=== PATIENT | female | born 1985 ===

== ENCOUNTER → 2022-08-20 13:04 | Outpatient (CLI) | payer OTHER, MEDICAID, SELFPAY ==
[2022-08-20 19:57] LABS: Hematocrit 38.2 % (36-46); Hemoglobin 12.8 g/dL (12.0-16.0); Mean Corpuscular HGB Conc 33.4 % (30-36); Mean Corpuscular Hemoglobin 32.3 PG (26-34); Mean Corpuscular Volume 96.8 fL (80-100); Platelet Count 147 X10^3/uL (150-400); Red Blood Cell Count 3.95 X10^6/uL (4.0-5.2); Red Cell Distribution Width 15.4 % (11.6-14.8)
[2022-08-20 20:04] LABS: Alanine Aminotransferase 18 IU/L (<35); Albumin Globulin Ratio 1.1 (1.0-2.8); Alkaline Phosphatase 60 U/L (38-126); Aspartate Aminotransferase 26 IU/L (14-36); Bilirubin Total 0.3 mg/dL (0.2-1.3); Bilirubin Unconjugated 0.2 mg/dL (0.0-1.1); Globulin 3.8 g/dL (1.7-4.1); HEMOLYSIS < 15 (0-50); Total Protein 7.8 g/dL (6.3-8.2)
[2022-08-20 20:58] LABS: Anisocytosis 1+; Neutrophils Absolute Manual 4600 /uL (3000-5900); Total Cells Counted 100
[2022-08-20 21:00] LABS: Polychromasia 1+
== END ==
PROVIDERS: PCP Family Medicine; Visit Provider Family Medicine
DX: G40.909 Epilepsy, unspecified, not intractable, without status epilepticus (principal)
CPT/HCPCS: 80076; 85025

== ENCOUNTER → 2023-01-12 14:30 | Outpatient (CLI) | payer OTHER, MEDICAID, SELFPAY ==
[2023-01-12 19:55] LABS: Hematocrit 40.1 % (36-46); Hemoglobin 13.2 g/dL (12.0-16.0); Mean Corpuscular HGB Conc 32.9 % (30-36); Mean Corpuscular Hemoglobin 32.3 PG (26-34); Mean Corpuscular Volume 98.2 fL (80-100); Platelet Count 194 X10^3/uL (150-400); Red Blood Cell Count 4.09 X10^6/uL (4.0-5.2); Red Cell Distribution Width 15.5 % (11.6-14.8)
[2023-01-12 19:56] LABS: Add Manual Diff / Slide Review YES
[2023-01-12 19:59] LABS: Alanine Aminotransferase 13 IU/L (<35); Albumin 4.1 g/dL (3.5-5.0); Albumin Globulin Ratio 1.1 (1.0-2.8); Alkaline Phosphatase 58 U/L (38-126); Aspartate Aminotransferase 22 IU/L (14-36); Bilirubin Total 0.3 mg/dL (0.2-1.3); Globulin 3.8 g/dL (1.7-4.1); HEMOLYSIS < 15 (0-50); Total Protein 7.9 g/dL (6.3-8.2)
[2023-01-12 20:13] LABS: Anisocytosis 1+; Neutrophils Absolute Manual 4700 /uL (3000-5900); Total Cells Counted 100
[2023-01-14 04:59] LABS: Valproic Acid (Depakene) Total 128 ug/mL (50-100)
== END ==
PROVIDERS: PCP Family Medicine; Visit Provider Family Medicine
DX: G40.909 Epilepsy, unspecified, not intractable, without status epilepticus (principal)
CPT/HCPCS: 80076; 80164; 85007; 85025

== ENCOUNTER → 2023-12-07 10:01 | Outpatient (CLI) | payer OTHER, MEDICAID, SELFPAY | PROVIDERS: PCP Family Medicine; Visit Provider Physician Assistant | DX: L02.215 Cutaneous abscess of perineum (principal) | CPT/HCPCS: 87070; 87075; 87205 ==

== ENCOUNTER → 2024-02-15 10:54 | Outpatient (CLI) | payer OTHER, MEDICAID, SELFPAY ==
[2024-02-15 20:26] LABS: Hematocrit 36.4 % (36-46); Hemoglobin 12.1 g/dL (12.0-16.0); Mean Corpuscular HGB Conc 33.3 % (30-36); Mean Corpuscular Hemoglobin 32.6 PG (26-34); Mean Corpuscular Volume 97.9 fL (80-100); Platelet Count 185 X10^3/uL (150-400); Red Blood Cell Count 3.72 X10^6/uL (4.0-5.2); Red Cell Distribution Width 15.6 % (11.6-14.8); White Blood Cell Count 11.4 X10^3/uL (4.5-11.0)
[2024-02-15 20:38] LABS: Alanine Aminotransferase 14 IU/L (<35); Albumin 4.2 g/dL (3.5-5.0); Albumin Globulin Ratio 1.3 (1.0-2.8); Alkaline Phosphatase 56 U/L (38-126); Aspartate Aminotransferase 24 IU/L (14-36); BUN Creatinine Ratio 44.9 (6-22); Bilirubin Total 0.3 mg/dL (0.2-1.3); Blood Urea Nitrogen 31 mg/dL (7-17); Calcium 10.3 mg/dL (8.4-10.2); Carbon Dioxide 23 mmol/L (22-32); Chloride 110 mmol/L (98-107); Estimated Glomerular Filt Rate > 60 mL/min (>60); Globulin 3.3 g/dL (1.7-4.1); Glucose 90 mg/dL (70-100); HEMOLYSIS < 15 (0-50); Potassium 3.3 mmol/L (3.4-5.1); Sodium 142 mmol/L (137-145); Total Protein 7.5 g/dL (6.3-8.2)
[2024-02-15 20:39] LABS: Add Manual Diff / Slide Review YES
[2024-02-15 21:12] LABS: Neutrophils Absolute Manual 5472 /uL (3000-5900); Total Cells Counted 100
[2024-02-15 21:13] LABS: Anisocytosis 1+
== END ==
PROVIDERS: PCP Family Medicine; Visit Provider Family Medicine
DX: G80.4 Ataxic cerebral palsy (principal); G40.909 Epilepsy, unspecified, not intractable, without status epilepticus
CPT/HCPCS: 80053; 80164; 85007; 85025

== ENCOUNTER → 2025-06-27 13:35 | Outpatient (CLI) | payer MEDICARE, SELFPAY ==
[2025-06-27 19:25] LABS: Add Manual Diff / Slide Review NO; Hematocrit 30.8 % (36-46); Hemoglobin 10.3 g/dL (12.0-16.0); Lymphocytes Absolute Auto 2900 /uL (1100-4500); Mean Corpuscular HGB Conc 33.4 % (30-36); Mean Corpuscular Hemoglobin 31.5 PG (26-34); Mean Corpuscular Volume 94.3 fL (80-100); Platelet Count 266 X10^3/uL (150-400)
[2025-06-27 19:31] LABS: Alanine Aminotransferase 9 IU/L (<35); Albumin 3.6 g/dL (3.5-5.0); Albumin Globulin Ratio 1.0 (1.0-2.8); Alkaline Phosphatase 68 U/L (38-126); Blood Urea Nitrogen 22 mg/dL (7-17); Calcium 9.9 mg/dL (8.4-10.2); Carbon Dioxide 24 mmol/L (22-32); Chloride 104 mmol/L (98-107); Estimated Glomerular Filt Rate > 60 mL/min (>60); Globulin 3.5 g/dL (1.7-4.1); Glucose 92 mg/dL (70-99); HEMOLYSIS < 15 (0-50); Potassium 4.1 mmol/L (3.4-5.1); Sodium 136 mmol/L (137-145); Total Protein 7.1 g/dL (6.3-8.2)
[2025-06-27 20:04] LABS: TSH w/ Reflex to FT4 3.05 uIU/mL (0.47-4.68)
[2025-06-28 11:16] LABS: HEMOLYSIS < 15 (0-50); Iron 54 ug/dL (37-170)
[2025-06-28 11:27] LABS: Percent Iron Saturation 15 % (15-50); Total Iron Binding Capacity 366 ug/dL (265-497); Transferrin 315 mg/dL (206-381)
[2025-06-28 12:06] LABS: Vitamin B12 > 1000 pg/mL (239-931)
[2025-06-29 02:36] LABS: Valproic Acid (Depakene) Total 88 ug/mL (50-100)
== END ==
PROVIDERS: PCP Family Medicine; Visit Provider Family Medicine
DX: D64.9 Anemia, unspecified (principal); G80.4 Ataxic cerebral palsy; E87.6 Hypokalemia
CPT/HCPCS: 80053; 80164; 82607; 83540; 83550; 84443; 85025